=== PATIENT | female | born 1960 | race Caucasian/White ===

== ENCOUNTER 2021-03-01 14:30 | Emergency (ER) | payer MEDICAID ==
[~2021-03-01] VITALS: Ht 167.6 cm; Wt 87.0 kg
[2021-03-01] MEDS ORDERED: HYDROCODONE/ACETAMINOPHEN 5/325MG TABLET PO STA (18:43)
[2021-03-01 19:56] VITALS: BP 145/89
[2021-03-01] MEDS ORDERED: CYCL5TAB PO (20:11)
[2021-03-01] MEDS ORDERED: IBUP-2029 PO (20:11)
== END 2021-03-01 21:07 | disposition home or self-care (01) ==
LOC: ER 14:59
DX: S16.1XXA Strain of muscle, fascia and tendon at neck level, initial encounter (principal); S39.012A Strain of muscle, fascia and tendon of lower back, initial encounter; R07.89 Other chest pain; E11.9 Type 2 diabetes mellitus without complications; I10 Essential (primary) hypertension; V49.49XA Driver injured in collision with other motor vehicles in traffic accident, initial encounter; Y93.89 Activity, other specified; Y92.89 Other specified places as the place of occurrence of the external cause; Y99.8 Other external cause status
CPT/HCPCS: 71045; 72100; 99284